=== PATIENT | male | born 1980 | race Caucasian/White ===

== ENCOUNTER 2017-11-27 15:51 | Emergency (ER) | payer MEDICAID ==
[2017-11-27 15:58] VITALS: BP 156/100; PULSE 84; RESP 16; TEMP 98.2; O2SAT 98
--- NOTE | 2017-11-27 16:19 | EDPHY ---
General - History Smoking Status: Never smoked Narrative: CHIEF COMPLAINT: Spider bite HISTORY OF PRESENT ILLNESS: Patient complains of spider bites to the right axilla and brachium. This is been present for nearly a month. He describes pain, redness, numbness, tingling , weakness, muscle loss. Symptoms have been present for a month and he has not yet been evaluated. He occasionally has some systemic complaints that wax and wane from moderate to severe. He also associates with muscle spasm of the right trapezius and shoulder. He reports difficulty moving the arm and even "it 's paralysis" at times. He feels that "it's an inner sickness now. I'm debilitated." No chest pain. No fever. He has been treating this with topical antibiotics and iodine. No other associated complaints or modifying factors. TETANUS STATUS: Less than 5 years ago MEDICAL/SURGICAL/SOCIAL HISTORY: No ongoing medical diagnoses. Nonsmoker. Occasional alcohol and marijuana use. On his own tree [employer] REVIEW OF SYSTEMS: Ten systems reviewed and are negative unless otherwise noted in the HPI EXAMINATION General Appearance: Alert, no distress Head: normocephalic, atraumatic Cardiovascular: Symmetric radial pulses 2+. Brisk cap refill Neurological: A&O, light sensation of the back of the hand is symmetric. strength is 4/5 in the right upper extremity. 5/5 left upper extremity. Strength is symmetric in lower extremities. No wrist drop on the right arm. Right triceps reflex 2+. Skin: Warm and dry, no rash. There are areas of possible spider bite versus is mild MRSA infection on the right axilla and brachium. Has no abscess or fluctuance. No induration. No extensive cellulitis. Extremities: Mild tenderness in the right brachium and right axilla in the mid axillary line. Range of motion is symmetric in the upper extremities. He is ranging the right upper extremity freely despite complaints of difficulty doing so. He does have muscle wasting of the right biceps. DIFFERENTIAL DIAGNOSES: Including but not limited to spider bite, MRSA infection, neuropathy MDM: 4:20 p.m. Possible spider inoculation versus MRSA infection. There is no abscess to be drained. No extensive cellulitis. Symptoms have been present for a month. He is ranging the arm fully despite complaints of having difficulty doing so. He is asking for antibiotic only. All treated with antibiotic, short course of Neurontin for his neuropathic pain, short course of Flexeril for the muscle spasm he associates with this. I do not feel he has any emergent condition as he has had symptoms for a month and is ranging his arm freely. I will discharge him home with the medications as above with outpatient follow-up with Neurology and his established position. He is comfortable this plan and discharged home stable condition SUPERVISION: This patient was independently evaluated without direct involvement of or examination by the attending physician. ED Precautions: Worsening pain. Erythema, edema, cyanosis, pallor, paresthesia or anesthesia. (Jose A Ribeiro) Discussion: The patient was evaluated and managed by the Physician Plumbing And Heating Mechanic. My co- signature indicates that I have reviewed this chart and I agree with the findings and plan of care as documented. I am the secondary supervising physician. (Rebeka Cook) - Objective Vital Signs: Initial Vital Signs Temperature (C) 36.8 C 11/27/17 15:55 Heart Rate 84 11/27/17 15:55 Respiratory Rate 16 11/27/17 15:55 Blood Pressure 156/100 H 11/27/17 15:55 O2 Sat (%) 98 11/27/17 15:55 Allergies/Adverse Reactions: No Known Allergies Allergy (Verified 11/27/17 15:54) Home Medications: Medication Instructions Recorded Cyclobenzaprine [Flexeril 10 MG 10 mg PO TID PRN #15 tab 11/27/17 (*)] Gabapentin [Neurontin 300 MG (*)] 300 mg PO HS #7 cap 11/27/17 Sulfamethox/Tmp 800/160 mg 1 tab PO BID 10 Days tab 11/27/17 [Bactrim Ds] Departure - Departure Disposition: Home, Routine, Self-Care Clinical Impression: MRSA (methicillin resistant Staphylococcus aureus) infection, Accidental spider bite Condition: Good Instructions: MRSA (Methicillin-Resistant Staphylococcus Aureus) (ED), Insect Bite or Sting (ED) Additional Instructions: 1. Medications as prescribed 2. Follow up with primary physician and neurologist as provided 3. ED precautions as discussed Referrals: TRAV BOOGIE [Primary Care Provider] - As per Instructions Anup Villa MD [Medical Doctor] - As per Instructions Prescriptions: Cyclobenzaprine [Flexeril 10 MG (*)] 10 mg PO TID PRN #15 tab PRN Reason: Spasms Gabapentin [Neurontin 300 MG (*)] 300 mg PO HS #7 cap Sulfamethox/Tmp 800/160 mg [Bactrim Ds] 1 tab PO BID 10 Days tab
== END 2017-11-27 16:33 | disposition home or self-care (01) ==
DX: T63.301A Toxic effect of unspecified spider venom, accidental (unintentional), initial encounter (principal); B95.62 Methicillin resistant Staphylococcus aureus infection as the cause of diseases classified elsewhere

== ENCOUNTER 2018-01-13 15:46 | Emergency (ER) | payer MEDICAID ==
[2018-01-13 16:03] VITALS: BP 127/92; PULSE 107; RESP 20; TEMP 98.4; O2SAT 97
[2018-01-13] MEDS ORDERED: CHLORDIAZEPOXIDE 25MG PREPK#6 BTL TAKEHOME ONE (17:10)
[2018-01-13] MEDS ORDERED: chlordiazePOXIDE 25 MG CAP PO ONE (17:10)
--- NOTE | 2018-01-13 17:17 | EDPHY ---
H & P Stated Complaint: here for librium to detox from ETOH at the [facility] Time Seen by Provider: 01/13/18 17:03 HPI/ROS: CHIEF COMPLAINT: Alcohol withdrawal HISTORY OF PRESENT ILLNESS: The patient is a 37-year-old alcoholic who comes to the emergency department requesting we draw medications. He states that he initially went to the [facility] but they referred him here for medications. He has gone through withdrawals before in [place] and had success with Librium and Neurontin. He has never had seizures. He stop drinking this morning. He are he feels somewhat shaky but has stable vital signs. No hallucinations. No vomiting. REVIEW OF SYSTEMS: Constitutional: denies: chills, fever, recent illness, recent injury EENTM: denies: blurred vision, double vision, nose congestion Respiratory: denies: cough, shortness of breath Cardiac: denies: chest pain, irregular heart rate, lightheadedness, palpitations Gastrointestinal/Abdominal: denies: abdominal pain, diarrhea, nausea, vomiting, blood streaked stools Genitourinary: denies: dysuria, frequency, hematuria, pain Musculoskeletal: denies: joint pain, muscle pain Skin: denies: lesions, rash, jaundice, bruising Neurological: denies: headache, numbness, paresthesia, tingling, dizziness, weakness Hematologic/Lymphatic: denies: blood clots, easy bleeding, easy bruising Immunologic/allergic: denies: HIV/AIDS, transplant EXAM: GENERAL: Well-appearing, very slight tremor. HEAD: Atraumatic, normocephalic. EYES: Pupils equal round and reactive to light, extraocular movements intact, sclera anicteric, conjunctiva are normal. ENT: TMs normal, nares patent, oropharynx clear without exudates. Moist mucous membranes. NECK: Normal range of motion, supple without lymphadenopathy or JVD. LUNGS: Breath sounds clear to auscultation bilaterally and equal. No wheezes rales or rhonchi. HEART: Regular rate and rhythm without murmurs, rubs or gallops. ABDOMEN: Soft, nontender, normoactive bowel sounds. No guarding, no rebound. No masses appreciated. BACK: No CVA tenderness, no spinal tenderness, step-offs or deformities EXTREMITIES: Normal range of motion, no pitting or edema. No clubbing or cyanosis. NEUROLOGICAL: Cranial nerves II through XII grossly intact. Normal speech, normal gait. 5/5 strength, normal movement in all extremities, normal sensation PSYCH: Normal mood, normal affect. SKIN: Warm, dry, normal turgor, no visible rashes or lesions. Source: Patient Exam Limitations: No limitations - Personal History Current Tetanus/Diphtheria Vaccine: Yes Current Tetanus Diphtheria and Acellular Pertussis (TDAP): Yes Tetanus Vaccine Date: 2014 - Medical/Surgical History Hx Asthma: No Hx Chronic Respiratory Disease: No Hx Diabetes: No Hx Cardiac Disease: No Hx Renal Disease: No Hx Cirrhosis: No Hx Alcoholism: No Hx HIV/AIDS: No Hx Splenectomy or Spleen Trauma: No Other PMH: denies - Family History Significant Family History: No pertinent family hx - Social History Smoking Status: Never smoked Alcohol Use: Heavy Drug Use: None Constitutional: Initial Vital Signs Temperature (C) 36.9 C 01/13/18 16:01 Heart Rate 107 H 01/13/18 16:01 Respiratory Rate 20 01/13/18 16:01 Blood Pressure 127/92 H 01/13/18 16:01 O2 Sat (%) 97 01/13/18 16:01 O2 Delivery Mode Room Air Allergies/Adverse Reactions: No Known Allergies Allergy (Verified 01/13/18 16:00) Home Medications: Medication Instructions Recorded NK [No Known Home Meds] 01/13/18 Medical Decision Making ED Course/Re-evaluation: The patient refuses to be taken back to the back part of the ED because of fear of infection. He was treated for the triage room. Will give him a dose of Librium here and [facility] with [facility]. His for drive. They are agreeable with this plan and declines further workup or testing at this time. We discussed indications for returning. Differential Diagnosis: Partial list of the Differential diagnosis considered include but were not limited to; alcohol withdrawal, polysubstance abuse and although unlikely based on the history and physical exam, I also considered infection, arrhythmia. I discussed these differential diagnoses and the plan with the patient as well as the usual and expected course. The patient understands that the diagnosis is provisional and that in medicine we are not always correct and that further workup is often warranted. Usual and customary warnings were given. All of the patient's questions were answered. The patient was instructed to return to the emergency department should the symptoms at all worsen or return, otherwise to followup with the physician as we discussed. - Data Points Medications Given: Discontinued Medications Chlordiazepoxide (Librium 25 Mg Prepack#6) 1 btl TAKEHOME EDNOW ONE Stop: 01/13/18 17:11 Last Admin: 01/13/18 17:20 Dose: 1 btl Chlordiazepoxide HCl (Librium) 50 mg PO EDNOW ONE Stop: 01/13/18 17:11 Last Admin: 01/13/18 17:20 Dose: 50 mg Departure - Departure Disposition: Home, Routine, Self-Care Clinical Impression: Alcohol withdrawal Qualifiers: Complication of substance-induced condition: uncomplicated Qualified Code(s): F10.230 - Alcohol dependence with withdrawal, uncomplicated Condition: Fair Instructions: Chlordiazepoxide (By mouth), Abuse of Alcohol (ED) Referrals: [facility] [Outside] - As per Instructions TRAV BOOGIE [Primary Care Provider] - As per Instructions
== END 2018-01-13 17:24 | disposition home or self-care (01) ==
DX: F10.230 Alcohol dependence with withdrawal, uncomplicated (principal)

== ENCOUNTER 2019-01-22 21:24 | Emergency (ER) | payer MEDICAID, OTHER ==
[2019-01-22] MEDS ORDERED: LORazepam 1 MG TAB PO ONE (22:13)
--- NOTE | 2019-01-22 22:15 | EDPHY ---
H & P Time Seen by Provider: 01/22/19 22:06 HPI/ROS: CHIEF COMPLAINT: "I'm Withdrawing" HISTORY OF PRESENT ILLNESS: 38-year-old male self-described "alcoholic" had a friend drive in the ER. He would like to start alcohol detox. His only complaint is anxiety. Last drink of alcohol was approximately 2 hr prior to arrival. Denies hallucination. Denies seizure. Denies suicidal homicidal ideation. Denies complaints of physical pain. REVIEW OF SYSTEMS: 10 systems reviewed and negative with the exception of the elements mentioned in the history of present illness PAST MEDICAL & SURGICAL HISTORY: history of alcoholism SOCIAL HISTORY:Last drink alcohol 2 hr prior to arrival PHYSICAL EXAM (Prior to examination, patient consented to physical exam, hands were washed and my usual and customary physical exam procedures followed) 1) GENERAL: Well-developed, well-nourished, alert and oriented. Appears anxious , tearful 2) HEAD: Normocephalic, atraumatic 3) HEENT: Pupils equal, round, reactive to light bilaterally. Sclera anicteric. Nasopharynx, oropharynx, clear, no lesions. Moist Mucous membranes. 4) NECK: Full range of motion, no meningeal signs. 5) LUNGS: Clear auscultation bilaterally, no wheezes, no rhonchi, no retractions. 6) HEART: Regular rate and rhythm, no murmur, no heave, no gallop. 7) ABDOMEN: No guarding, no rebound, no focal tenderness, negative McBurney's, negative Medina's, negative Rovsing's, negative peritoneal sign, 8) MUSCULOSKELETAL: Moving all extremities, no focal areas of tenderness, no obvious trauma. No peripheral edema or discoloration. 9) BACK: No CVA tenderness, no midline vertebral tenderness, no fluctuance, no step-off, no obvious trauma, no visual or palpable abnormality. 10) SKIN: No rash, no petechiae. 11) Psychiatric: Patient is oriented X 3, there is no agitation. 12) NEURO: Awake, alert, and oriented to person, place and time. Answers questions appropriately. There were no obvious focal neurologic abnormalities. No cerebellar dysfunction. Cranial nerves 2 through to 12 intact. Normal steady gait. Upper and lower extremities bilaterally with strength 5 / 5, reflexes 2+. DIFFERENTIAL DIAGNOSIS: In no particular order including but not limited to acute alcohol withdrawal, delirium tremens, alcoholic hallucinosis Smoking Status: Never smoked Constitutional: Initial Vital Signs Temperature (C) 36.8 C 01/22/19 21:36 Heart Rate 117 H 01/22/19 21:36 Respiratory Rate 20 01/22/19 21:36 Blood Pressure 116/96 H 01/22/19 21:36 O2 Sat (%) 95 01/22/19 21:36 O2 Delivery Mode Room Air Allergies/Adverse Reactions: No Known Allergies Allergy (Verified 01/22/19 21:35) Home Medications: Medication Instructions Recorded Vistaril 01/22/19 MDM/Departure - MDM Medications Given: Discontinued Medications Lorazepam (Ativan) 1 mg PO EDNOW ONE Stop: 01/22/19 22:14 Last Admin: 01/22/19 22:25 Dose: 1 mg ED Course/Re-evaluation: 10:13 p.m. no seizure, no evidence of delirium, no suicidal or homicidal ideation. I Have offered to send the patient to [facility] which declines. I have offered a single Ativan and he states he would like to have his friend take him home. Will not discharge patient home with benzodiazepines. Madhuri barnes to return to the ER for evaluation at point. Patient feels comfortable being discharged. All questions and concerns addressed by myself. Patient given my usual and customary discharge precautions and instructions regarding their clinical impression. Care of patient under supervision of secondary supervising physician Dr Galdamez. - Depart Disposition: Home, Routine, Self-Care Clinical Impression: Alcohol withdrawal Qualifiers: Complication of substance-induced condition: uncomplicated Qualified Code(s): F10.230 - Alcohol dependence with withdrawal, uncomplicated Condition: Good Instructions: Alcohol Withdrawal (ED) Referrals: [facility] [Outside] - 1-2 days without fail
[2019-01-22 22:30] VITALS: BP 118/79
== END 2019-01-22 22:31 | disposition home or self-care (01) ==
DX: F10.230 Alcohol dependence with withdrawal, uncomplicated (principal); F41.9 Anxiety disorder, unspecified